=== PATIENT | female | born 1990 | race African-American/Black ===

== ENCOUNTER 2019-02-17 06:15 | Emergency (ER) | payer OTHER ==
[~2019-02-17] VITALS: Ht 162.6 cm; Wt 72.6 kg
--- OUTSIDE RECORDS SUMMARY | 2019-02-17 06:18 | XMS REPORT | Clinical Summary ---
Author Author [facility] Address Unknown Phone Unavailable Care Team Providers Care Sinter Press Operator Name Role Phone Deepak Reddy DO PCP Allergies Comments Active Allergy Reactions Severity Noted Date Throat swelling Butorphanol Tartrate 03/13/2017 Medications No known medications Active Problems No known active problems Immunizations Name Dates Previously Given Next Due Tdap 07/06/2015 Family History Medical History Relation Name Comments No Known Problems Father No Known Problems Mother Relation Name Status Comments Father Alive Mother Alive Social History Date Tobacco Use Types Packs/Day Years Used Never Smoker Smokeless Tobacco: Never Used Sex Assigned at Date Recorded Not on file Industry Job Start Date Occupation Not on file Not on file Not on file Travel End Travel History Travel Start No recent travel history available. Last Filed Vital Signs Not on file Plan of Treatment Health Maintenance Due Date Last Done Comments INFLUENZA VACCINE 02/03/2019 Results Not on fileafter 02/16/2018 Insurance Type Payer Benefit Subscriber ID Effective Phone Address Plan / Dates Group Medicaid MEDICAID MEDICAID xxxxxxxxx [id number] resent Advance Directives Patient has advance care planning documents on file. For more information, cristela castro contact: Herve Haile [address] [place] [address]
--- OUTSIDE RECORDS SUMMARY | 2019-02-17 06:18 | XMS REPORT ---
Author Author [facility] Address Unknown Phone Unavailable Care Team Providers Care Patient Accounting Representative Name Role Phone Unavailable Unavailable Problems This patient has no known problems. Allergies, Adverse Reactions, Alerts This patient has no known allergies or adverse reactions. Medications This patient has no known medications. Encounters Start Date/Time End Date/Time Encounter Type Admission Type Attending [facility] Care Department Encounter ID 2019-02-17 02:03:00 2019-02-17 02:03:00 Emergency E [facility] [id number] 2019-02-15 04:35:00 2019-02-15 04:35:00 Emergency E [facility] [id number] 2019-01-05 21:14:00 2019-01-05 21:14:00 Emergency E [facility] [id number] 2018-12-26 12:28:00 2018-12-26 12:28:00 Emergency E [facility] [id number] 2018-11-06 09:18:00 2018-11-06 09:18:00 Emergency E [facility] [id number]
--- OUTSIDE RECORDS SUMMARY | 2019-02-17 06:18 | XMS REPORT | Summary of Care ---
Author Author ANAT BROWN M.D. Organization Unknown Address [facility] Phone Unavailable Care Team Providers Care Finishing Range Supervisor Name Role Phone ANAT BROWN M.D. Unavailable Unavailable ANAT BROWN JR, MD Unavailable Unavailable Unavailable Unavailable Functional Status Name Dates Details Functional status health issues are not documented Status: Name Dates Details Cognitive status health issues are not documented Status: Problems Name Dates Details History of dislocation of shoulder (V13.59, Z87.39) Status: Active Medications Name Dates Details Medications not documented Allergies and Adverse Reactions Name Dates Details Allergy history not documented Status: Procedures Procedure Dates Details Procedures not documented Immunization Name Dates Details Immunizations not documented Social History Name Dates Details Unknown if ever smoked Vital Signs Date Test Result Details No Known Vitals to report Results Date Description Value Details [id number] [U] XRAY SHOULDER MIN 2 VWS LEFT [id number] XR SHOULDER MIN 2 VWS LEFT Images acquired, not reported on this accession number. Plan of Care Name Dates Details Planned Observations Planned Goals not documented Interventions Provided Labs/Procedures/Imaging* [U] XRAY SHOULDER MIN 2 VWS LEFT [id number]; Done: 09 Dec 2018 Instructions Name Dates Details Instructions not documented Encounters Appointment; ANAT BROWN M.D. Encounter Diagnosis: Problem not documented On: 06-Apr-2017 10:00 Appointment; ANAT BROWN M.D. Encounter Diagnosis: Problem not documented On: 14-Sep-2017 10:15 Appointment; ANAT BROWN M.D. Encounter Diagnosis: Problem not documented On: 25-Nov-2018 14:30 Appointment; ANAT BROWN M.D. Encounter Diagnosis: Problem not documented On: 09-Dec-2018 13:15
--- NOTE | 2019-02-17 06:45 | NUR ---
ASST CHAPTORIE; DIGITAL RECTAL EXAM BY MD. NO BLOOD NOTED. NO STOOL IN RECTUM PER MD VALDES. GUIAC NEGATIVE.
--- NOTE | 2019-02-17 07:20 | Diagnostic Imaging Report ---
EXAM: CT of the abdomen and pelvis WITHOUT contrast HISTORY: Abdominal pain, constipation, blood in stool COMPARISON: None available. TECHNIQUE: The abdomen and pelvis were scanned utilizing a multidetector helical scanner. Coronal and sagittal reformats are available. PROTOCOL: Renal colic IV CONTRAST: None, which limits sensitivity and specificity of evaluation of the soft tissues and vascular structures. ORAL CONTRAST: None, which limits sensitivity and specificity of evaluation of the bowel. RADIATION DOSE: Total DLP: 483.82 mGy*cm Estimated effective dose: (DLP x 0.015 x size factor) Dose modulation, iterative reconstruction, and/or weight based adjustment of the mA/kV was utilized to reduce the radiation dose to as low as reasonably achievable. COMPLICATIONS: None FINDINGS: LOWER THORAX: Unremarkable HEPATOBILIARY: No definite focal hepatic lesions. No biliary ductal dilatation. The gallbladder is unremarkable. SPLEEN: No splenomegaly. PANCREAS: No focal masses or ductal dilatation. ADRENALS: No adrenal nodule. KIDNEYS/URETERS: No hydronephrosis, stones, or solid mass lesion identified. PELVIC ORGANS/BLADDER: The urinary bladder is mildly decompressed, but otherwise appears unremarkable. The uterus is anteflexed. PERITONEUM / RETROPERITONEUM: No free air or fluid. GI TRACT: The stomach is predominantly decompressed, which limits evaluation. The appendix appears normal. Radiopaque contrast within the distal small bowel and cecum. Nonspecific thickened appearance of the rectosigmoid wall with adjacent fat stranding. LYMPH NODES: No pathologically enlarged lymph nodes. VESSELS: Appear unremarkable. BONES and JOINTS: No aggressive osseous lesion or acute fracture. SOFT TISSUES: Unremarkable. IMPRESSION: Nonspecific colitis. Signed by: Dr. Ray Cooney D.O., M.M.M. on 02/17/2019 7:17 AM
[2019-02-17] MEDS ORDERED: HYDROCODONE/APAP 5MG-325MG TAB PO ONE (07:30)
[2019-02-17] MEDS ORDERED: ONDANSETRON HCL 4 MG ORAL DISINTEGRATING TAB PO ONE (07:30)
[2019-02-17] MEDS ORDERED: KETOROLAC TROMETHAMINE 60 MG/2 ML VIAL IM ONE (07:30)
[2019-02-17] MEDS ORDERED: HYDROCODONE/APAP 5MG-325MG TAB ONE (07:31)
[2019-02-17] MEDS ORDERED: KETOROLAC TROMETHAMINE 30 MG/ML VIAL ONE (07:32)
--- NOTE | 2019-02-17 07:36 | NUR ---
VERIFIED ALLG WITH PT AND MD; PT STATES ALLG STADOL AND SHE AND MD STATE PT CAN TOLERATE NORCO AND TORADOL. PT DRANK PO WATER WITH MEDS AND TOLERATED WITHOUT VOMITING.
== END 2019-02-17 07:48 | disposition home or self-care (01) ==
LOC: FSED 06:15
DX: R10.9 Unspecified abdominal pain (principal); K59.00 Constipation, unspecified; K92.1 Melena; K56.41 Fecal impaction
CPT/HCPCS: 74176; 82270; 99284; J1885 ×2; Q0162